=== PATIENT | male | born 1930 | race Caucasian/White ===

== ENCOUNTER 2016-08-31 21:15 | Inpatient (IN) ==
[2016-08-31 22:28] LABS: Basophils # 0.1 K/mcL (0.0-0.2); Eosinophils # 0.1 K/mcL (0.0-0.6); Eosinophils % 1.2 %; Hematocrit 40.6 % (37.5-50.1); Hemoglobin 12.8 g/dL (12.9-16.9); Immature Granulocytes % 0.2 % (0-4); Lymphocytes % 19.8 %; Mean Corpuscular HGB Conc 31.5 g/dL (31.6-35.5); Mean Corpuscular Hemoglobin 30.8 pg (28.0-33.3); Mean Corpuscular Volume 97.6 fL (83.0-100.0); Mean Platelet Volume 12.6 fL (9.4-12.4); Monocytes # 0.6 K/mcL (0.0-1.3); Monocytes % 11.9 %; Neutrophils # 3.3 K/mcL (1.6-8.9); Nucleated Red Blood Cells 0.6 /100 WBC (0); Platelet Count 146 K/mcL (140-400); Red Blood Count 4.16 M/mcL (4.19-5.50); Red Cell Distribution Width 18.3 % (11.5-14.5); Segmented Neutrophils % 65.9 %
[2016-08-31 22:30] LABS: Bilirubin,Urine Small (Negative); Blood,Urine Moderate (Negative); Clarity,Urine Clear (Clear); Color,Urine Yellow (Yellow); Glucose,Urine (UA) Normal (Normal); Ketones,Urine Negative (Negative); Leukocyte Esterase,Urine Negative (Negative); Nitrite,Urine Negative (Negative); PH,Urine 5.5 pH Units (5.0-8.0); Protein,Urine >=300 mg/dL (Neg-Trace); Specific Gravity,Urine 1.023 (1.010-1.025); Urobilinogen,Urine Normal (Normal)
[2016-08-31 22:33] LABS: INR 2.3; Prothrombin Time 25.8 Seconds (9.4-12.1)
[2016-08-31 22:35] LABS: Activated Partial Thrombo Time 34.4 Seconds (26.0-36.0)
[2016-08-31 22:38] LABS: Bacteria,Urine Few per hpf (None-Few); Hyaline Casts,Urine Few per lpf (None-Few); RBC,Urine 0-3 per hpf (0-3); WBC,Urine 0-3 per hpf (0-3)
[2016-08-31 22:39] LABS: Squamous Epithelial Cell,Urine Few per lpf (None-Few)
[2016-08-31 22:42] LABS: Calcium 8.6 mg/dL (8.6-10.8); Potassium 4.7 mEq/L (3.5-4.5)
--- NOTE | 2016-08-31 23:46 | Emergency Department Note ---
Disposition Clinical Impression: Elevated troponin, Chronic atrial fibrillation, JULIO (acute kidney injury) TIA (transient ischemic attack) Qualifiers: Transient cerebral ischemia type: unspecified Qualified Code(s): G45.9 - Transient cerebral ischemic attack, unspecified A-fib Qualifiers: Atrial fibrillation type: chronic Qualified Code(s): I48.2 - Chronic atrial fibrillation Disposition: Admitted As Inpatient Condition: Fair Time of Disposition: 22:50 Dizziness HPI - General Chief Complaint: ED Dizziness Stated Complaint: dizziness Time Seen by Provider: 08/31/16 21:22 Source: patient, EMS Limitations: no limitations Nursing Notes Reviewed: Yes Vital Signs Reviewed: Yes - History of Present Illness HPI Narrative: Patient is an 86-year-old male complains he thinks he is having a stroke. Patient states that he suddenly had a feeling of lightheadedness and dizziness, and felt strange and relates that feeling to the last time he had a stroke. Patient states he just did not feel right. Patient also states that he has been having difficulty urinating and that his urine is strong. Patient's from out of town has not been seen here before. Patient's Dr. Potter is in [facility]. 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 Patient's blood sugar by EMS was 121. - Related Data Home Medications Medication Instructions Recorded Confirmed Furosemide [Lasix] 20 mg PO DAILY 08/31/16 08/31/16 Metoprolol [Lopressor] 12.5 mg PO BID 08/31/16 08/31/16 Potassium Chloride 10 meq PO DAILY 08/31/16 08/31/16 Simvastatin [Zocor] 40 mg PO HS 08/31/16 08/31/16 Warfarin [Coumadin] 4 mg PO 1800 08/31/16 08/31/16 Oxycodone HCl/Acetaminophen 1 tab PO Q6HR PRN 09/01/16 09/01/16 [Percocet 5-325 mg Tablet] Allergies Allergy/AdvReac Type Severity Reaction Status Date / Time No Known Allergies Allergy Verified 08/31/16 21:16 Review of Systems: Patient denies headache, nausea, vomiting, chest pain, abdominal pain, diarrhea. Patient admits to lightheadedness, dizziness without vertigo, uneasy feeling. Patient denies visual disturbances as well and numbness and tingling in extremities All systems ED: reviewed and negative except as stated. Past Medical History - Past Medical History Attestation: Yes The following information was validated with the patient. Medical history: Reports: CVA, hypertension, renal disease Psychiatric history: Reports: no psych history - Social History Smoking Status: Former smoker Smokeless Tobacco Status: No Alcohol use: Reports: occasionally Drug use: Reports: none Physical Exam Vital Signs Temperature 97.4 F L 08/31/16 21:19 Pulse Rate 85 08/31/16 21:19 Respiratory Rate 18 08/31/16 21:19 Blood Pressure 130/80 08/31/16 21:19 O2 Sat by Pulse Oximetry 97 08/31/16 21:19 Temperature 98.0 F 09/01/16 04:20 Pulse Rate 56 09/01/16 04:20 Respiratory Rate 15 09/01/16 04:20 Blood Pressure 135/74 09/01/16 04:20 O2 Sat by Pulse Oximetry 95 09/01/16 04:20 Oxygen Delivery Oxygen Delivery Nasal Cannula -General Appearance: Patient is a 86-year-old male who is alert and oriented 3 and in no acute distress. -Neurological exam: Cranial nerves II-12 intact, no focal deficits observed, strength equal 5/5 bilaterally in upper and lower extremities, cerebellar motion test negative. Negative loss of sensation - Head Head exam: atraumatic, normocephalic, normal inspection - Eye Eye exam: Present: normal appearance, PERRL, EOMI, negative for scleral icterus negative for conjunctival pallor - ENT ENT exam: normal exam, normal oropharynx, mucous membranes moist - Neck Neck exam: Present: normal inspection, full ROM, trachea midline, negative JVD - Chest Chest inspection: Present: Patient has bilateral equal rise and fall of chest wall. Non-tender to palpation. - Respiratory Respiratory exam: Clear to auscultation bilaterally without wheezes rales or rhonchi Cardiovascular Cardiovascular exam: Present: Irregular rate and irregular rhythm, EKG shows A. fib. No rubs murmurs or gallops - Abdominal Exam Abdominal exam: Present: soft, nondistended, Non-Tender light and deep palpation in all quadrants. Bowel sounds normoactive throughout all 4 quadrants. Negative for hyper or hyperresonance. - Extremities Exam Extremities exam: Present: normal inspection, full ROM - Back Exam Back exam: Present: normal inspection, full ROM. Absent: tenderness, CVA tenderness (R), CVA tenderness (L) - Psychiatric Psychiatric exam: Present: normal affect, normal mood - Skin Skin exam: Present: warm, dry, intact, normal color - General Limitations: no limitations General appearance: alert, in no apparent distress Course Course Narrative: Patient seen and examined. Labs ordered, ordered, CT head ordered - Reevaluation(s) Reevaluation #1: Patient doing well, awaiting lab results Time: 22:10 Reevaluation #2: Patient's symptoms well. Discussed the patient and need for admission given his acute kidney injury and unknown feeling in the setting of A. fib and elevated troponin. Patient understands and agrees to treatment plan patient agrees to admission Time: 22:50 - Consultations Consultation #1: Dr. Grijalva accepted for admission. Time: 22:50 Vital Signs Temperature 97.4 F L 08/31/16 21:19 Pulse Rate 85 08/31/16 21:19 Respiratory Rate 18 08/31/16 21:19 Blood Pressure 130/80 08/31/16 21:19 O2 Sat by Pulse Oximetry 97 08/31/16 21:19 Temperature 98.0 F 09/01/16 04:20 Pulse Rate 56 09/01/16 04:20 Respiratory Rate 15 09/01/16 04:20 Blood Pressure 135/74 09/01/16 04:20 O2 Sat by Pulse Oximetry 95 09/01/16 04:20 Oxygen Delivery Oxygen Delivery Nasal Cannula Dizziness - MDM Narrative Medical decision making narrative: Recent history concerning for possible CVA, TIA, MA, pneumonia, UTI. CT head was there any abnormalities, chest x-ray showed right pleural effusion, and right lower lobe airspace disease. BMP shows hyperkalemia of 4.7, BUN elevation at 38, creatinine level 1.86. Patient has no previous lab values for comparison. Patient also has a GFR of 34. The patient has acute kidney injury possibly and a level of dehydration. Patient is placed on IV hydration. Patient also has a troponin of 0.07. It is unclear why patient has an elevation of troponin the patient does have chronic atrial fibrillation. Recommend patient be admitted to the hospital for further workup. Dr. Grijalva has accepted for admission - Lab Data Lab results reviewed: Yes I reviewed the patient's lab results. Lab results narrative: Short CBC 08/31/16 Range/Units 22:18 WBC 4.9 (4.3-11.1) K/mcL Hgb 12.8 L (12.9-16.9) g/dL Hct 40.6 (37.5-50.1) % Plt Count 146 (140-400) K/mcL Neutrophils # 3.3 (1.6-8.9) K/mcL BMP 08/31/16 Range/Units 22:18 Sodium 140 (136-145) mEq/L Potassium 4.7 H (3.5-4.5) mEq/L Chloride 108 (98-109) mEq/L Carbon Dioxide 22 (19-29) mEq/L BUN 38 H (8-26) mg/dL Creatinine 1.86 H (0.72-1.25) mg/dL Glucose 104 H (70-99) mg/dL Calcium 8.6 (8.6-10.8) mg/dL Cardiac Enzymes 08/31/16 Range/Units 22:18 Troponin I 0.07 H* (0-0.03) ng/mL Urine 08/31/16 Range/Units 22:20 Urine Color Yellow (Yellow) Urine Clarity Clear (Clear) Urine pH 5.5 (5.0-8.0) pH Units Ur Specific [place] 1.023 (1.010-1.025) Urine Protein >=300 H (Neg-Trace) mg/dL Urine Glucose (UA) Normal (Normal) mg/dL Result diagrams: 08/31/16 22:18 08/31/16 22:18 Lab Results 08/31/16 08/31/16 08/31/16 Range/Units 22:18 22:18 22:18 WBC 4.9 (4.3-11.1) K/mcL RBC 4.16 L (4.19-5.50) M/mcL Hgb 12.8 L (12.9-16.9) g/dL Hct 40.6 (37.5-50.1) % MCV 97.6 (83.0-100.0) fL MCH 30.8 (28.0-33.3) pg MCHC 31.5 L (31.6-35.5) g/dL RDW 18.3 H (11.5-14.5) % Plt Count 146 (140-400) K/mcL MPV 12.6 H (9.4-12.4) fL Immature Gran % 0.2 (0-4) % Seg Neutrophils % 65.9 % Lymphocytes % 19.8 % Monocytes % 11.9 % Eosinophils % 1.2 % Basophils % 1.0 % Neutrophils # 3.3 (1.6-8.9) K/mcL Lymphocytes # 1.0 (0.6-4.6) K/mcL Monocytes # 0.6 (0.0-1.3) K/mcL Eosinophils # 0.1 (0.0-0.6) K/mcL Basophils # 0.1 (0.0-0.2) K/mcL Nucleated RBCs/100 WBC 0.6 H (0) /100 WBC PT 25.8 H (9.4-12.1) Seconds INR 2.3 APTT 34.4 (26.0-36.0) Seconds Sodium 140 (136-145) mEq/L Potassium 4.7 H (3.5-4.5) mEq/L Chloride 108 (98-109) mEq/L Carbon Dioxide 22 (19-29) mEq/L BUN 38 H (8-26) mg/dL Creatinine 1.86 H (0.72-1.25) mg/dL Est GFR ( Amer) 42 L (> 60) Est GFR (Non-Af Amer) 34 L (> 60) BUN/Creatinine Ratio 20 (6-26) Glucose 104 H (70-99) mg/dL Calculated Osmolality 299 (280-300) Calcium 8.6 (8.6-10.8) mg/dL Troponin I (0-0.03) ng/mL Urine Color (Yellow) Urine Clarity (Clear) Urine pH (5.0-8.0) pH Units Ur Specific [place] (1.010-1.025) Urine Protein (Neg-Trace) mg/dL Urine Glucose (UA) (Normal) mg/dL Urine Ketones (Negative) mg/dL Urine Blood (Negative) Urine Nitrite (Negative) Urine Bilirubin (Negative) Urine Urobilinogen (Normal) mg/dL Ur Leukocyte Esterase (Negative) Urine Microscopic RBC (0-3) per hpf Urine Microscopic WBC (0-3) per hpf Ur Squamous Epith Cells (None-Few) per lpf Urine Bacteria (None-Few) per hpf Hyaline Casts (None-Few) per lpf Ur Culture Indicated? (NO) 08/31/16 08/31/16 Range/Units 22:18 22:20 WBC (4.3-11.1) K/mcL RBC (4.19-5.50) M/mcL Hgb (12.9-16.9) g/dL Hct (37.5-50.1) % MCV (83.0-100.0) fL MCH (28.0-33.3) pg MCHC (31.6-35.5) g/dL RDW (11.5-14.5) % Plt Count (140-400) K/mcL MPV (9.4-12.4) fL Immature Gran % (0-4) % Seg Neutrophils % % Lymphocytes % % Monocytes % % Eosinophils % % Basophils % % Neutrophils # (1.6-8.9) K/mcL Lymphocytes # (0.6-4.6) K/mcL Monocytes # (0.0-1.3) K/mcL Eosinophils # (0.0-0.6) K/mcL Basophils # (0.0-0.2) K/mcL Nucleated RBCs/100 WBC (0) /100 WBC PT (9.4-12.1) Seconds INR APTT (26.0-36.0) Seconds Sodium (136-145) mEq/L Potassium (3.5-4.5) mEq/L Chloride (98-109) mEq/L Carbon Dioxide (19-29) mEq/L BUN (8-26) mg/dL Creatinine (0.72-1.25) mg/dL Est GFR ( Amer) (> 60) Est GFR (Non-Af Amer) (> 60) BUN/Creatinine Ratio (6-26) Glucose (70-99) mg/dL Calculated Osmolality (280-300) Calcium (8.6-10.8) mg/dL Troponin I 0.07 H* (0-0.03) ng/mL Urine Color Yellow (Yellow) Urine Clarity Clear (Clear) Urine pH 5.5 (5.0-8.0) pH Units Ur Specific [place] 1.023 (1.010-1.025) Urine Protein >=300 H (Neg-Trace) mg/dL Urine Glucose (UA) Normal (Normal) mg/dL Urine Ketones Negative (Negative) mg/dL Urine Blood Moderate H (Negative) Urine Nitrite Negative (Negative) Urine Bilirubin Small H (Negative) Urine Urobilinogen Normal (Normal) mg/dL Ur Leukocyte Esterase Negative (Negative) Urine Microscopic RBC 0-3 (0-3) per hpf Urine Microscopic WBC 0-3 (0-3) per hpf Ur Squamous Epith Cells Few (None-Few) per lpf Urine Bacteria Few (None-Few) per hpf Hyaline Casts Few (None-Few) per lpf Ur Culture Indicated? NO (NO) - Radiology Data Radiology results reviewed: Yes I reviewed the patient's radiology results. Chest X-Ray 08/31/16 21:22 IMPRESSION: Moderate-sized right pleural effusion. Bilateral lower lobe airspace disease greater on the right. These changes may represent multifocal pneumonia versus CHF. D/ : / 08/31/2016 21:55:58 Galdino Richards MD / Elida Simpson Interpreting Provider: Galdino Richards MD Head CT 08/31/16 21:41 IMPRESSION: No acute intracranial abnormality. If acute cerebral infarct is clinical concern, an MRI is a more sensitive study. D/ / Rebecca Barnett Cha, MD / Rebecca Barnett Cha, MD Interpreting Provider: Rebecca Barnett Cha, MD - EKG Data EKG attestation: Yes I reviewed and interpreted this EKG. EKG results narrative: Patient's EKG dated 08/31/2016 at 2126 hrs. shows A. fib at a ventricular rate of 86 bpm with no acute ST deviations. We have no previous EKG for comparison this is patient's first time here. Attestation Statement - Attestation Attestation: For this encounter, I have reviewed the resident, HOUSEHOLD APPLIANCE INSTALLER, or PA documentation, treatment plan, and medical decision making; and I have had face to face time with this patient. 78-year-old male presents with concerns of acute onset weakness and fatigue. He states he has difficulty with ambulation around the house over the past 24 hours. Patient denies fever, chills, nausea, vomiting, chest pain, abdominal pain, diarrhea. Physical examination reveals the lungs clear to auscultation bilaterally. Cardiac exam has an irregularly irregular rhythm. EKG shows atrial fibrillation at a rate of 86 bpm with multiple PVCs without evidence of STEMI. Patient has an elevation of his troponin. He has no chest pain emergency Department. Patient comfortable with admission to the hospital for continued care and evaluation of his weakness and fatigue which may be this patient's presenting complaint for ACS.
[2016-08-31] MEDS ORDERED: Naloxone 0.4 MG/ML INJ IVP PRN (23:48)
[2016-09-01] MEDS ORDERED: 0.9 % Sodium Chloride 1,000 ML IVC SCH (01:15)
[2016-09-01] MEDS ORDERED: Ondansetron 4 MG/2 ML VIAL IVP PRN (01:16)
[2016-09-01] MEDS ORDERED: Naloxone 0.4 MG/ML INJ IVP PRN (01:16)
--- NOTE | 2016-09-01 01:36 | Internal Med History&Physical ---
Date of Encounter: 09/01/16 Time of Encounter: 00:25 Internal Medicine - H&P: HPI Chief complaint: I was advised to get check out after a bout of dizziness. Admitted From: Emergency Dept Plans for Post Hospital Care: Home History of present illness: Mr. Jane is a 86 year old male with medical history significant for CAD S/P TN, CKD and CVA, presents on advise of his brother -in-law to come get an evaluation after he a a short spell of lightheadness/dizziness after splitting wood yesterday. He reports he did not feel well. The spell lasted under one hour and has not recurred since. He went to bed and woke up in the morning, symptoms had completely resolved. No recurrence. He did not fall. He has no chest pain and had no other neurological deficit. Had CVA a couple of years ago , and felt dizzy at that time too. aT THE TIME OF MY INTERVIEW, HE HAD NO COMPLAINTS. His PCP is Dr. Potter of [facility]. He is FULL CODE as per discussion. He nominates his sister as his NOK/POA. Medical history: Reports: CVA, hypertension, CKD, atrial fibrillation, CAD s/p CABG, deafness (uses a hearing aid) Surgerical history: CABG Psychiatric history: Reports: no psych history Smoking Status: Former smoker Smokeless Tobacco Status: No Alcohol use: Reports: occasionally Drug use: Reports: none Family history reviewed and found to be non-contributory ROS: A 10-poit ROS was performed, positives and relevant negatives are detailed , system-symptoms not mentioned assumed negative unless otherwise stated. Vital Signs Temperature 97.4 F L 08/31/16 21:19 Pulse Rate 85 08/31/16 21:19 Respiratory Rate 18 08/31/16 21:19 Blood Pressure 130/80 08/31/16 21:19 O2 Sat by Pulse Oximetry 97 08/31/16 21:19 Temperature 97.4 F L 08/31/16 21:19 Pulse Rate 84 08/31/16 23:17 Respiratory Rate 16 08/31/16 23:17 Blood Pressure 145/98 08/31/16 23:17 O2 Sat by Pulse Oximetry 96 08/31/16 23:17 O/E: Not ill looking, not in distress, Not pale, anicteric, afebrile to touch, acyanotic HEENT: No cervical or jugular lymphadenopathy, pharynx and tonsils normal. Chest: Clinically clear, sternotomy scar Heart: irregular-irregular 82, HS1/2. 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 Extremities: 1+ pitting pedal edema in the left lower extremity, site of venous harvest for CABG 08/31/16 22:18 Lab Results 08/31/16 08/31/16 08/31/16 Range/Units 22:18 22:18 22:18 WBC 4.9 (4.3-11.1) K/mcL RBC 4.16 L (4.19-5.50) M/mcL Hgb 12.8 L (12.9-16.9) g/dL Hct 40.6 (37.5-50.1) % MCV 97.6 (83.0-100.0) fL MCH 30.8 (28.0-33.3) pg MCHC 31.5 L (31.6-35.5) g/dL RDW 18.3 H (11.5-14.5) % Plt Count 146 (140-400) K/mcL MPV 12.6 H (9.4-12.4) fL Immature Gran % 0.2 (0-4) % Seg Neutrophils % 65.9 % Lymphocytes % 19.8 % Monocytes % 11.9 % Eosinophils % 1.2 % Basophils % 1.0 % Neutrophils # 3.3 (1.6-8.9) K/mcL Lymphocytes # 1.0 (0.6-4.6) K/mcL Monocytes # 0.6 (0.0-1.3) K/mcL Eosinophils # 0.1 (0.0-0.6) K/mcL Basophils # 0.1 (0.0-0.2) K/mcL Nucleated RBCs/100 WBC 0.6 H (0) /100 WBC PT 25.8 H (9.4-12.1) Seconds INR 2.3 APTT 34.4 (26.0-36.0) Seconds Sodium 140 (136-145) mEq/L Potassium 4.7 H (3.5-4.5) mEq/L Chloride 108 (98-109) mEq/L Carbon Dioxide 22 (19-29) mEq/L BUN 38 H (8-26) mg/dL Creatinine 1.86 H (0.72-1.25) mg/dL Est GFR ( Amer) 42 L (> 60) Est GFR (Non-Af Amer) 34 L (> 60) BUN/Creatinine Ratio 20 (6-26) Glucose 104 H (70-99) mg/dL Calculated Osmolality 299 (280-300) Calcium 8.6 (8.6-10.8) mg/dL Troponin I (0-0.03) ng/mL Urine Color (Yellow) Urine Clarity (Clear) Urine pH (5.0-8.0) pH Units Ur Specific [place] (1.010-1.025) Urine Protein (Neg-Trace) mg/dL Urine Glucose (UA) (Normal) mg/dL Urine Ketones (Negative) mg/dL Urine Blood (Negative) Urine Nitrite (Negative) Urine Bilirubin (Negative) Urine Urobilinogen (Normal) mg/dL Ur Leukocyte Esterase (Negative) Urine Microscopic RBC (0-3) per hpf Urine Microscopic WBC (0-3) per hpf Ur Squamous Epith Cells (None-Few) per lpf Urine Bacteria (None-Few) per hpf Hyaline Casts (None-Few) per lpf Ur Culture Indicated? (NO) 08/31/16 08/31/16 Range/Units 22:18 22:20 WBC (4.3-11.1) K/mcL RBC (4.19-5.50) M/mcL Hgb (12.9-16.9) g/dL Hct (37.5-50.1) % MCV (83.0-100.0) fL MCH (28.0-33.3) pg MCHC (31.6-35.5) g/dL RDW (11.5-14.5) % Plt Count (140-400) K/mcL MPV (9.4-12.4) fL Immature Gran % (0-4) % Seg Neutrophils % % Lymphocytes % % Monocytes % % Eosinophils % % Basophils % % Neutrophils # (1.6-8.9) K/mcL Lymphocytes # (0.6-4.6) K/mcL Monocytes # (0.0-1.3) K/mcL Eosinophils # (0.0-0.6) K/mcL Basophils # (0.0-0.2) K/mcL Nucleated RBCs/100 WBC (0) /100 WBC PT (9.4-12.1) Seconds INR APTT (26.0-36.0) Seconds Sodium (136-145) mEq/L Potassium (3.5-4.5) mEq/L Chloride (98-109) mEq/L Carbon Dioxide (19-29) mEq/L BUN (8-26) mg/dL Creatinine (0.72-1.25) mg/dL Est GFR ( Amer) (> 60) Est GFR (Non-Af Amer) (> 60) BUN/Creatinine Ratio (6-26) Glucose (70-99) mg/dL Calculated Osmolality (280-300) Calcium (8.6-10.8) mg/dL Troponin I 0.07 H* (0-0.03) ng/mL Urine Color Yellow (Yellow) Urine Clarity Clear (Clear) Urine pH 5.5 (5.0-8.0) pH Units Ur Specific [place] 1.023 (1.010-1.025) Urine Protein >=300 H (Neg-Trace) mg/dL Urine Glucose (UA) Normal (Normal) mg/dL Urine Ketones Negative (Negative) mg/dL Urine Blood Moderate H (Negative) Urine Nitrite Negative (Negative) Urine Bilirubin Small H (Negative) Urine Urobilinogen Normal (Normal) mg/dL Ur Leukocyte Esterase Negative (Negative) Urine Microscopic RBC 0-3 (0-3) per hpf Urine Microscopic WBC 0-3 (0-3) per hpf Ur Squamous Epith Cells Few (None-Few) per lpf Urine Bacteria Few (None-Few) per hpf Hyaline Casts Few (None-Few) per lpf Ur Culture Indicated? NO (NO) Chest xr: Moderate-sized right pleural effusion. Bilateral lower lobe airspace disease greater on the right. This is consistent with CHF. Head CT: No acute intracranial abnormality. IMPRESSION 1. Transient spell of dizziness after splitting wood, now resolved 2. Right pleural effusion, related to to CHF 3. Congestive heart failure with decompensation 4. Elevated troponin of unknown significance, I suspect this is either chronic or related to demand ischemia 5. CKD III, though unlikely, I cannt exclude an acute on chronic component as I do not have prior studies. Besides the finding on CXR, HE APPEARS EUVOLEMIC 6. Hypoxia Chronic morbidities CKD CAD s/p CABG Atrial fibrillation on Metoprolol and Warfarin CHF (? TYPE) on Furosemide PLAN Admit to observation Telemetry Trend troponin Consider stress testing if result of cardiac studies cannot be obtained from PCP or accounts receivable clerk 2D ECHO IV Furosemide 40mg IVP QD. Consult cardiology Continue other medication of chronic morbidities Obtain records from Dr. Potter of [facility], crucial are his baseline creatinine and recent cardiac work-up. On Warfarin for stroke prophylaxis, will serve aslo DVT prophylaxis I discussed my assessment with the patient, he verbalized understanding and is agreeable to admission. He is admitted for evaluation of dizziness, elevated troponin and some diuresis. Past Med Surg Social Fam HX - Past Medical History Medical history: CVA, hypertension, renal disease Psychiatric history: no psych history - Social History Smoking Status: Former smoker Smokeless Tobacco Status: No Alcohol use: occasionally Drug use: none Internal Medicine - H&P: Meds Furosemide [Lasix] 20 mg PO DAILY 08/31/16 [History] Metoprolol [Lopressor] 12.5 mg PO BID 08/31/16 [History] Potassium Chloride 10 meq PO DAILY 08/31/16 [History] Simvastatin [Zocor] 40 mg PO HS 08/31/16 [History] Warfarin [Coumadin] 4 mg PO 1800 08/31/16 [History] Oxycodone HCl/Acetaminophen [Percocet 5-325 mg Tablet] 1 tab PO Q6HR PRN [History] Allergies No Known Allergies Allergy (Verified 08/31/16 21:16) All Systems PM: A 10-system review of systems was performed and is negative for pertinent findings except as documented above in the HPI. - Constitutional Vitals: Temp Pulse Resp BP Pulse Ox 97.5 F L 79 15 136/73 96 09/01/16 01:27 09/01/16 01:27 09/01/16 01:27 09/01/16 01:27 09/01/16 01:27 Internal Med - H&P Results - Labs CBC & Chem 7: 08/31/16 22:18 08/31/16 22:18
[2016-09-01 05:55] LABS: Chol/HDL Ratio 4.7 (0-4.9)
[2016-09-01 06:00] LABS: Thyroid Stimulating Hormone 0.468 mcIU/mL (0.350-4.840)
[2016-09-01] MEDS ORDERED: Furosemide 20 MG TABLET PO SCH (09:00)
[2016-09-01] MEDS ORDERED: Furosemide 40 MG/4 ML VIAL IVP SCH ×2 (09:00→12:00)
--- NOTE | 2016-09-01 09:17 | Cardiology Consult Note ---
<Jose Hutchins - Last Filed: 09/01/16 10:53> Date of Encounter: 09/01/16 Time of Encounter: 09:14 Assessment and Plan (1) Elevated troponin Current Visit: Yes Status: Acute Mild troponin elevation at 0.07, 0.09. Likely demand ischemia in the setting of CHF and JULIO. Baseline creatinine unknown. Order records. Check TTE. (2) Chronic atrial fibrillation Current Visit: No Status: Chronic Likely chronic afib. Rate controlled. On coumadin for senior living anticoagulation. (3) CHF (congestive heart failure) Current Visit: Yes Status: Acute Reports history of CHF. Continues to have SOB and orthopnea. CXR reviewed. Moderate right pleural effusion and bilateral airspace changes. BNP 2891. Continue IV lasix. Strict I&O and daily weights. CHF education. TTE to assess for systolic dysfunction. Qualifiers: Congestive heart failure type: unspecified congestive heart failure type Congestive heart failure chronicity: acute Qualified Code(s): I50.9 - Heart failure, unspecified (4) CAD (coronary artery disease) Current Visit: No Status: Chronic H/o of CAD s/p CABG in 2009, and possible valvular repair. Pt poor historian. Reports he has not seen drawer fitter for about 7 years. Denies chest pain. We will order records. Qualifiers: Coronary Disease-Associated Artery/Lesion type: [place] artery [place] vs. transplanted heart: [place] heart Associated angina: without angina Qualified Code(s): I25.10 - Atherosclerotic heart disease of [place] coronary artery without angina pectoris Discussion w patient/family: The assessment and plan as outlined above was discussed with the patient and/or family members who expressed understanding and agreement. All questions were answered. Thank you for involving us in the care of your patient. Please call with any questions. History of Present Illness Consult date: 09/01/15 Requesting physician: Bakari Robert Consult reason: elevated troponin Chief complaint: SOB, lightheadedness History of present illness: Mr. Jane is a 86 year old male who presented with lightheadedness and SOB that started while he was chopping wood. He is from [place], [place] and was visiting a sister. His lightheadedness was similar to what he felt with a previous CVA so he presented to ER. His lightheadedness lasted for a short period. He continues to have SOB. Admits to orthopnea. He denies chest pain . Denies N/V or diaphoresis. He is a poor historian. I did talk to his daughter on the phone to obtain his health history. His troponin was found to be elevated at 0.07,0.09. CXR showed moderate right pleural effusion, bilateral airspace changes, CHF vs PNA. Cardiology consulted for elevated troponin. Past medical history of CAD s/p CABG, atrial fibrillation on coumadin, CHF, CKD, previous tobacco use, and CVA. No previous work-up through [facility]. Past Med Surg Social Fam HX - Past Medical History Medical history: atrial fibrillation, CHF, coronary artery disease, CVA, hypertension, renal disease Psychiatric history: no psych history - Past Surgical History Surgical History: coronary bypass (CABG) - Social History Smoking Status: Former smoker Smokeless Tobacco Status: No Alcohol use: occasionally Drug use: none - Family History Father Living Status: Hx Family Cancer: Yes (Throat cancer.) Mother Living Status: Cause of : Gallbladder burst. Medications and Allergies Furosemide [Lasix] 20 mg PO DAILY 08/31/16 [History] Metoprolol [Lopressor] 12.5 mg PO BID 08/31/16 [History] Potassium Chloride 10 meq PO DAILY 08/31/16 [History] Simvastatin [Zocor] 40 mg PO HS 08/31/16 [History] Warfarin [Coumadin] 4 mg PO 1800 08/31/16 [History] Oxycodone HCl/Acetaminophen [Percocet 5-325 mg Tablet] 1 tab PO Q6HR PRN [History] Allergies No Known Allergies Allergy (Verified 08/31/16 21:16) All Systems Review: A 10-system review of systems was performed and is negative for pertinent findings except as documented above in the HPI. Physical Examination Vital Signs, Last 4 Hours Temp Pulse Resp BP Pulse Ox 09/01/16 06:35 97.7 F 74 17 137/70 92 L General: Conversant, No Apparent Distress HEENT: Atraumatic, Normocephaly, Mucus Membranes Moist Neck: No JVD, Normal carotid pulses Cardiac: No Murmur, Other (Irregularly irregular. ) Lungs: Other (Respirations mildly labored on RA. Loud expiratory wheezes. ) Neuro: Alert and responsive, No focal deficits noted Abdomen: Soft, Non-Tender Skin: No rashes noted on visualized skin Musculoskeletal: No Chest Wall Tenderness Extremities: No Clubbing, No Cyanosis, No Edema, Normal Pulses Results 08/31/16 22:18 08/31/16 22:18 Lab Results 09/01/16 09/01/16 04:02 04:02 Troponin I 0.09 H* TSH 0.468 - Imaging and Cardiology Echo: pending - EKG Interpretation EKG results cardiology: personally reviewed (atrial fibrillation, afib, HR 89bpm ) Consult Discharge Plan - Plan Referrals: NO,PCP [Primary Care Provider] - <Leonor Gomez - Last Filed: 09/01/16 17:36> Date of Encounter: 09/01/16 Assessment and Plan Discussion w patient/family: The assessment and plan as outlined above was discussed with the patient and/or family members who expressed understanding and agreement. All questions were answered. Thank you for involving us in the care of your patient. Please call with any questions. History of Present Illness History of present illness: Mr. Jane is a 86 year old male All Systems Review: A 10-system review of systems was performed and is negative for pertinent findings except as documented above in the HPI. Physical Examination Vital Signs, Last 4 Hours Temp Pulse Resp BP Pulse Ox 09/01/16 14:57 97.6 F 73 16 129/71 95 Results 08/31/16 22:18 08/31/16 22:18 Lab Results 09/01/16 09/01/16 09/01/16 04:02 04:02 09:32 Troponin I 0.09 H* 0.08 H* B-Natriuretic Peptide TSH 0.468 09/01/16 09:32 Troponin I B-Natriuretic Peptide 2891 H TSH - Attending Attestation I examined this patient and my medical decision-making was reviewed with the CHANNEL MARKETING MANAGER/PA/Advanced Practice Nurse/Resident Physician. I agree with the documented findings, disposition and treatment plan. Mr. Jane's health care has been largely outside of [place]. History taking is also challenging although he reports a history of CAD and CABG. It appears he may have presented with SOB which is likely secondary to acute decompensated systolic heart failure. Echo returned with EF 25%. Troponins are flat and adynamic representing demand ischemia. We recommend continuing IV diuresis with strict I/O's. He is on a beta nash. Until we review records, would hold off on starting ACEI because of the presence of kidney dysfunction. We will request medical records for review. He otherwise has chronic AF and is on coumadin. He is not having chest pain. In addition, he has an aortic valve that was replaced which demonstrates normal gradient on echo. His mitral valve was repaired. There is a filamentous echodensity on the echo in which vegetation appears unlikely. The patient is afebrile and has no WBCs and does not appear ill. We will have blood cultures drawn before considering treatment. It is possible the echodensity is a remnant of mitral valve repair. We will also review records when they arrive.
--- NOTE | 2016-09-01 10:37 | Electrocardiograph Report ---
[facility] Test Date: 2016-08-31 Pat Name: Tarik Jane Department: 105 Room: 3B31 Gender: M Propagator: AARON : 1930 Requested By: Farooq Moyer Order Number: [id number] Reading MD: Dar Bray DO Measurements Intervals [place] Rate: 86 P: AK: 0 QRS: 83 QRSD: 98 T: 21 QT: 342 QTc: 386 Interpretive Statements Atrial fibrillation with aberrant conduction or a PVC Nonspecific ST-T changes Electronically Signed On 09-01-16 10:36:23 EST by Dar Bray DO
--- NOTE | 2016-09-01 14:11 | ECHO - Doppler Report ---
Echocardiogram Name: Tarik Jane Date of Study: 09/01/2016 Date: 1930 Ht: 70.0 in Medical Record#: [id number] Age: 86 Wt: 149.0 lb Gender: Male BSA: 1.84 Order #: [id number] Location: [facility] Room #: 3B31 Reading Physician: Dar Bray DO, MICHAEL, SELAM ADAMES Price Economist: Jerilyn Elder RVT Ordering Physician: Bakari Robert MD Primary Physician: None Indications: Elevated toponin Impressions: LVEF 25%. Severe global and segmental LV systolic dysfunction. Indeterminate diastolic function. Atypical septal motion consistent with post-operative status. Right ventricle appears near normal in size with mild hypokinesis. Moderate biatrial enlargement. Brioprosthetic aortic valve appears well seated. Trace valvular aortic regurgitation. Mean aortic valve gradient is 10 mmHg, which could be underestimated due to LV systolic dysfunction. Visually, the leaflets do not appear calcified and demonstrate adequate mobility. Previous mitral valve repair per reports. Mitral valve leaflets appear thickened. Filamentous oscillating echodensity adherent to the posterior MV annulus possibly represents a vegetation. Clinical correlation suggested. Mild-moderate pulmonary hypertension. Estimated RVSP is 43-48 mmHg, including an estimated RA pressure is 15-20 mmHg. No previous echocardiogorams at [place] for comparison. Left Ventricular Wall Motion: Rest Echo Findings The apex, apical inferior, mid inferior, apical anterior, mid anterior, basal anterior, mid inferior septal, basal inferior septal, apical lateral, mid anterior lateral, basal anterior lateral, mid inferior lateral and basal anterior septal gupta were hypokinetic. The basal inferior, apical septal, mid anterior septal and basal inferior lateral gupta were akinetic. Findings: Study Quality * Technically adequate exam. ECG Findings * Atrial fibrillation, possible bundle branch block. Left Ventricle * LVEF 25-30%. * Normal LV chamber size. * Severe global and segmental left ventricular systolic dysfunction. * Indeterminate diastolic function. * Atypical septal motion consistent with post-operative status. Right Ventricle * Right ventricle appears near normal in size with mild hypokinesis. Left Atrium * Moderately dilated left atrium. Right Atrium * Moderately dilated right atrium. Interatrial Septum * No evidence of PFO by color Doppler. Aortic Valve * Brioprosthetic aortic valve appears well seated. * Trace valvular aortic regurgitation. * Mean gradient 16 mmHg, which could be underestimated due to LV systolic dysfunction. Visually, the leaflets do not appears calcified and demonstrated adequate mobility. Mitral Valve * Previous mitral valve repair per reports. Mitral valve leaflets appear thickened. Filamentous oscillating echodensity adherent to the posterior MV annulus possibly represents a vegetation. Clinical correlation suggested. * Trace valvular mitral regurgitation. * No mitral stenosis. Tricuspid Valve * Normal tricuspid valve structure and function. * Trace tricuspid regurgitation. * Mild-moderate pulmonary hypertension. * Estimated RVSP is 43-48 mmHg. * Estimated RA pressure is 15-20 mmHg. Pulmonic Valve * Normal pulmonic valve structure and function. * Trace pulmonic regurgitation. Aorta * Normally sized aortic root. Pericardium * The pericardium appears normal. IVC * The IVC is dilated. * < 50% respiratory change. Pulmonary Artery * Normal visualized portions of the main pulmonary artery. History Hypertension Hypercholesteremia Family History of CAD History of CAD/PTCA Coronary Artery Bypass Graft Congestive Heart Failure Valvular Disease Valve Replacement AV Prosthesis Biologic Measurements: BP: 137/ 70 2D Normal Values RVIDd: 2.81 cm <2.7 cm IVSd: 1.20 cm 0.6 - 1.0 cm LVIDd: 5.47 cm 3.7 - 5.6 cm LVPWd: 1.20 cm 0.6 - 1.1 cm LVIDs: 4.43 cm 1.5 - 3.6 cm AO: 2.60 cm < 4.0 cm LA: 4.50 cm 2.0 - 4.0cm %FS: 19.00 cm >25 % LVOT Diam: 1.75 cm LA volume: 51.1 Mitral Valve Peak Velocity 1.89 m/sec Mean Velocity:.71 m/sec Peak Grad:14.00 mmHg Mean Grad:3.00 mmHg Pressure Time:48.00 msec Valve Area:.74 cm2 Peak E:1.55 m/sec Peak E' Lat Daniel:12.5 cm/s Peak E' Med Daniel:5.34 cm/s E/E' Lat Ratio:12.4 E/E' Med Ratio:29 LVOT Peak Daniel:.60 m/sec Mean Daniel:.37 m/sec Peak Grad:1.00 mmHg Mean Grad:1.00 mmHg Aortic Valve Peak Daniel:2.22 m/sec Mean Daniel:1.46 m/sec Peak Grad:20.00 mmHg Mean Grad:10.20 mmHg Valve Area:.75 cm2 AI pressure Half-time: 673.00 msec Tricuspid Valve TV Regurg Peak Grad: 20.00mmHg TV Regurg Peak Daniel: 2.22m/sec Updated by Dar Bray DO, FACWoody, ZACARIAS, SELAM on 09/01/2016 2:00:53 PM electronically signed on 09/01/2016 2:05:36 PM with status of Final Wall Motion [place]: 1=Normal, 2=Hypokinesis, 3=Akinesis, 4=Dyskinesis, 5=Aneurysmal, 6=Hyperkinetic, X=Not Visualized (Blank)=Missing
[2016-09-01] MEDS ORDERED: *HR* Warfarin 4 MG TABLET PO SCH (18:00)
[2016-09-01] MEDS: Furosemide 40 MG/4 ML VIAL IVP SCH (18:05)
--- NOTE | 2016-09-01 18:47 | Internal Med Progress Note ---
Date of Encounter: 09/01/16 Time of Encounter: 18:00 - Assessment and plan (1) Near syncope Current Visit: Yes Status: Acute Assessment and plan: Etiology is and determine. Need to rule out cardio/neuro etiology. Echo shows severe systolic dysfunction with diastolic dysfunction. Will also put the patient on continuous cardiac monitoring to rule out arrhythmia. On the duplex carotid to rule out stenosis. (2) A-fib Current Visit: Yes Status: Acute Assessment and plan: Patient is on Coumadin. INR therapeutic. Heart rate is well controlled Qualifiers: Atrial fibrillation type: chronic Qualified Code(s): I48.2 - Chronic atrial fibrillation (3) CHF (congestive heart failure) Current Visit: Yes Status: Acute Assessment and plan: Echo shows LVEF 25% with moderate diastolic dysfunction. Continue Lasix. Patient is on beta nash. Will follow cardiology further recommendation. Qualifiers: Congestive heart failure type: combined Congestive heart failure chronicity : acute Qualified Code(s): I50.41 - Acute combined systolic (congestive) and diastolic (congestive) heart failure (4) Elevated troponin Current Visit: Yes Status: Acute Assessment and plan: Cardiology saw patient. Consider demand ischemia. (5) CAD (coronary artery disease) Current Visit: No Status: Chronic Assessment and plan: Patient denies chest pain. On warfarin, beta blockers, and statin. Will follow cardiology further recommendation. Qualifiers: Coronary Disease-Associated Artery/Lesion type: [place] artery [place] vs. transplanted heart: [place] heart Associated angina: without angina Qualified Code(s): I25.10 - Atherosclerotic heart disease of [place] coronary artery without angina pectoris - Time Spent With Patient 25 - 35 minutes - Subjective Interval history: Patient is a 86-year-old male admitted as an near syncope. His past medical history is significant for CVA, hypertension, COPD, A. fib, CAD S/P CABG. Patient was seen and examined. He denies dizziness or lightheaded. No further syncope or near syncope. In mild respiratory distress. Cardio consult appreciated. Echo done shows LVEF 25% with moderate diastolic dysfunction. We will continue diuretics. Closely monitor patient. Will order duplex carotid bilaterally to rule out carotid stenosis. - Constitutional Vitals: Temp Pulse Resp BP Pulse Ox 97.6 F 73 16 129/71 95 09/01/16 14:57 09/01/16 14:57 09/01/16 14:57 09/01/16 14:57 09/01/16 14:57 General appearance: Present: mild distress, A&O X 3, answers questions appropriately - Head Head exam: Present: atraumatic, normocephalic - Eye Eye exam: Present: PERRL, conjuntiva pink, sclera anicteric Pupils: Present: PERRL - Neck Neck exam general surgery: Present: supple, trachea midline. Absent: lymphadenopathy - Respiratory Respiratory exam: Present: decreased breath sounds, CTAB. Absent: accessory muscle use, rales, rhonchi, wheezes - Cardiovascular Cardiovascular exam: Present: RRR, +S1, +S2. Absent: diastolic murmur, gallop, rubs, systolic murmur - GI/Abdominal GI/Abdominal exam: Present: normal bowel sounds, soft, no peritoneal signs. Absent: distended, tenderness - Extremities Exam Extremities exam: Present: warm, radial pulses palpable and symetrical. Absent : calf tenderness, cyanotic, pedal edema - Neurological Exam Neurological exam: Present: CN II-XII intact, oriented X3, no focal deficits. Absent: pronater drift, facial droop, speech deficit - Skin Skin exam: Present: dry, intact Internal Medicine: Result - Labs CBC & Chem 7: 08/31/16 22:18 08/31/16 22:18 Labs: Cardiac Enzymes 09/01/16 09/01/16 Range/Units 04:02 09:32 Troponin I 0.09 H* 0.08 H* (0-0.03) ng/mL - ABG Interpretation ABG results: PT/INR, D-dimer PT 25.8 Seconds (9.4-12.1) H 08/31/16 22:18 - Impressions Impressions Retroperitoneum Ultrasound 09/01/16 13:00 IMPRESSION: Unremarkable ultrasound of the kidneys and urinary bladder. Moderately enlarged prostate. Right pleural effusion incidentally noted. D/ / 09/01/2016 15:24:03 Tarik Bautista MD / meghan Interpreting Provider: Tarik Bautista MD Consult Discharge Plan - Plan Referrals: NO,PCP [Primary Care Provider] -
[2016-09-02 05:00] LABS: Basophils # 0.1 K/mcL (0.0-0.2); Basophils % 0.8 %; Eosinophils # 0.1 K/mcL (0.0-0.6); Eosinophils % 0.8 %; Hematocrit 42.1 % (37.5-50.1); Hemoglobin 13.5 g/dL (12.9-16.9); Immature Granulocytes % 0.2 % (0-4); Lymphocytes # 1.4 K/mcL (0.6-4.6); Lymphocytes % 21.9 %; Mean Corpuscular HGB Conc 32.1 g/dL (31.6-35.5); Mean Corpuscular Hemoglobin 30.2 pg (28.0-33.3); Mean Corpuscular Volume 94.2 fL (83.0-100.0); Mean Platelet Volume 11.8 fL (9.4-12.4); Monocytes # 0.7 K/mcL (0.0-1.3); Monocytes % 9.9 %; Neutrophils # 4.4 K/mcL (1.6-8.9); Nucleated Red Blood Cells 0.5 /100 WBC (0); Platelet Count 142 K/mcL (140-400); Red Blood Count 4.47 M/mcL (4.19-5.50); Red Cell Distribution Width 18.5 % (11.5-14.5); Segmented Neutrophils % 66.4 %
[2016-09-02 05:03] LABS: INR 2.2
[2016-09-02] MEDS: *HR* OxyCODONE/APAP 5/325 TABLET PO PRN (05:09)
[2016-09-02 05:24] LABS: Calcium 8.7 mg/dL (8.6-10.8); Potassium 4.6 mEq/L (3.5-4.5)
[2016-09-02] MEDS: Furosemide 40 MG/4 ML VIAL IVP SCH ×2 (08:17→17:08)
--- NOTE | 2016-09-02 12:17 | Cardiology Progress Note ---
Date of Encounter: 09/02/16 Time of Encounter: 12:15 Assessment and Plan (1) Elevated troponin Current Visit: Yes Status: Acute Mild troponin elevation at 0.07, 0.09. Likely demand ischemia in the setting of CHF and JULIO. Baseline creatinine 1.2-1.3 seen at [facility] in 2013. TTE revealed EF 25%, severe global dysfunction, RV is normal size with mild hypokenesis, bioprosthetic aortic valve well seated, MG 10 mmHg, previous mitral valve repair by history. Oscillating echodensity noted on postrior mitral valve annulus. Endocarditis unlikely with clinical presentation and work-up. Likely remnant of mitral valve repair.Blood cultures recommended and ordered. Telemetry review shows NSVT up to 5 beats, occasional couplets. Increase beta- nash. Reports from [facility] received. EF 25% in 2002 during time of bypass, AVR, and MVR. No studies following that hospital stay. Recommend f/u with cardiology to consider ICD placement in the future. No indication for further cardiac testing during hospital stay. Await blood culture results. I will change metoprolol tartrate to succinate. No eulogio-inhibitor d/t JULIO. Asa and statin therapy. (2) Chronic atrial fibrillation Current Visit: No Status: Inactive Likely chronic afib. Rate controlled. On coumadin for penitentiary anticoagulation. (3) CHF (congestive heart failure) Current Visit: Yes Status: Acute EF 25%. CXR -Moderate right pleural effusion and bilateral airspace changes. BNP 2891. Continue IV lasix. Strict I&O and daily weights. Negative 151 for 24 hours, ? is accurate. Symptoms improved with diuretic. Kidney function improved. CHF education. No eulogio-inhibitor d/t JULIO. Qualifiers: Congestive heart failure type: combined Congestive heart failure chronicity : acute Qualified Code(s): I50.41 - Acute combined systolic (congestive) and diastolic (congestive) heart failure (4) CAD (coronary artery disease) Current Visit: No Status: Chronic H/o of CAD s/p CABGx 5 in 2002, s/p bioprosthetic aortic valve replacement and mitral valve repair. Add asa. Continue statin and bb. Denies chest pain. Qualifiers: Coronary Disease-Associated Artery/Lesion type: [place] artery [place] vs. transplanted heart: [place] heart Associated angina: without angina Qualified Code(s): I25.10 - Atherosclerotic heart disease of [place] coronary artery without angina pectoris Discussion w patient/family: The assessment and plan as outlined above was discussed with the patient and/or family members who expressed understanding and agreement. All questions were answered. Thank you for involving us in the care of your patient. Please call with any questions. Subjective Principal diagnosis: CHF Interval history: Mr. Jane reports he is feeling better. Denies chest pain. Pt is a poor historian. Records revieved and reviewed from [facility] Objective Vital Signs, Last 4 Hours Temp Resp BP Pulse Ox 09/02/16 11:06 97.5 F L 16 124/72 90 L General: Conversant, No Apparent Distress, Other (Frail elderly male. ) HEENT: Atraumatic, Normocephaly, Mucus Membranes Moist Neck: No JVD, Normal carotid pulses Cardiac: Reg Rate and Rhythm, Normal S1 and S2, No Murmur Lungs: Normal Breath Sounds, No Wheeze, Rales, Rhonchi, Other (Appears to have mild SOB at rest.) Neuro: Alert and responsive, No focal deficits noted Abdomen: Soft, Non-Tender Skin: No rashes noted on visualized skin Musculoskeletal: No Chest Wall Tenderness Extremities: No Clubbing, No Cyanosis, No Edema, Normal Pulses Results 09/02/16 04:29 09/02/16 04:29 Lab Results 09/02/16 09/02/16 09/02/16 04:29 04:29 04:29 WBC 6.6 Hgb 13.5 Hct 42.1 Plt Count 142 INR 2.2 Sodium 139 Potassium 4.6 H Chloride 106 Carbon Dioxide 22 BUN 41 H Creatinine 1.71 H Glucose 115 H Calcium 8.7 - Imaging and Cardiology Echo: report reviewed Cardiac cath: report reviewed - EKG Interpretation EKG results cardiology: personally reviewed (atrial fibrillation. No ST changes. ), other (Telemetry review shows avg HR at 88bpm, atrial fibrillation, One 5 beat run of NSVt , occasional flavio and couplet noted.) Consult Discharge Plan - Plan Referrals: NO,PCP [Primary Care Provider] -
[2016-09-02] MEDS: Aspirin 81 MG TAB.CHEW PO SCH (13:50)
--- NOTE | 2016-09-02 15:05 | Internal Med Progress Note ---
Date of Encounter: 09/02/16 Time of Encounter: 11:30 - Assessment and plan (1) Abnormal echocardiogram Current Visit: Yes Status: Acute Assessment and plan: In review of charts from outlying hospitals, ejection fraction 25% is not new however the vegetation appears to be new. Per cardiology, will rule out endocarditis and await blood cultures prior to disposition. On examination, patient is euvolemic and denies pain or shortness of breath. If preliminary blood cultures are back tomorrow, likely discharge. Echocardiogram impressions: LVEF 25%. Severe global and segmental LV systolic dysfunction. Indeterminant diastolic function. Atypical septal motion consistent with postoperative status. Right ventricle appears near normal in size and mild hypokinesis. Moderate biatrial enlargement. Bioprosthetic aortic valve appears well seated. Trace valvular aortic regurgitation. Mean aortic valve gradient is 10 mmHg, which could be underestimated due to LV systolic dysfunction. Visually, the leaflets do not appear calcified and demonstrated adequate mobility. Previous mitral valve repair per reports. Mitral valve leaflets appear thickened. Filamentous oscillating echodensity adherent to the posterior and the annulus possibly represents a vegetation. Clinical correlation suggested. Mild-moderate pulmonary hypertension. Estimated RVSP is 43-48 mmHg, including an estimated RA pressure is 15-20 mmHg. No previous echocardiograms for comparison. (2) CKD (chronic kidney disease) stage 3, GFR 30-59 ml/min Current Visit: Yes Status: Chronic Assessment and plan: [facility], patient has chronic kidney disease stage III, currently consistent with his baseline. We will continue to trend. (3) A-fib Current Visit: Yes Status: Chronic Assessment and plan: Patient is on Coumadin. INR therapeutic at 2.2. Heart rate is well controlled Qualifiers: Atrial fibrillation type: chronic Qualified Code(s): I48.2 - Chronic atrial fibrillation (4) CHF (congestive heart failure) Current Visit: Yes Status: Chronic Assessment and plan: Echo shows LVEF 25% with moderate diastolic dysfunction. Continue Lasix. Patient is on beta nash. Per cardiology, blood cultures are negative, no further inpatient workup required inpatient would be cleared for outpatient follow-up at that time. Euvolemic on examination. Patient denies pain or shortness of breath. Qualifiers: Congestive heart failure type: combined Congestive heart failure chronicity : acute Qualified Code(s): I50.41 - Acute combined systolic (congestive) and diastolic (congestive) heart failure (5) Elevated troponin Current Visit: Yes Status: Acute Assessment and plan: Mild and adynamic. Suspect demand ischemia in the setting of CHF and CK D. Cardiology on board. Low suspicion for acute coronary syndrome. Patient denies pain or shortness of breath. (6) Near syncope Current Visit: Yes Status: Acute Assessment and plan: Unclear etiology, suspect multifocal. 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 Carotid duplex unremarkable. Head CT negative. Chest x-ray revealing moderate right-sided pleural effusion versus multifocal pneumonia versus CHF. Clinical examination consistent with CHF rather than multifocal pneumonia. Patient denies pain or shortness of breath. No need for supplemental oxygenation. No indication for thoracentesis at this time. Possible discharge tomorrow if blood cultures are negative. ITS Impressions Chest X-Ray 08/31/16 21:22 IMPRESSION: Moderate-sized right pleural effusion. Bilateral lower lobe airspace disease greater on the right. These changes may represent multifocal pneumonia versus CHF. D/ : / 08/31/2016 21:55:58 Galdino Richards MD / Elida Simpson Interpreting Provider: Galdino Richards MD Head CT 08/31/16 21:41 IMPRESSION: No acute intracranial abnormality. If acute cerebral infarct is clinical concern, an MRI is a more sensitive study. D/ / Rebecca Barnett Cha, MD / Rebecca Barnett Cha, MD Interpreting Provider: Rebecca Barnett Cha, MD Retroperitoneum Ultrasound 09/01/16 13:00 IMPRESSION: Unremarkable ultrasound of the kidneys and urinary bladder. Moderately enlarged prostate. Right pleural effusion incidentally noted. D/ / 09/01/2016 15:24:03 Tarik Bautista MD / meghan Interpreting Provider: Tarik Bautista MD (7) CAD (coronary artery disease) Current Visit: No Status: Chronic Assessment and plan: Patient denies chest pain. On warfarin, beta blockers, and statin. Will follow cardiology further recommendation. Qualifiers: Coronary Disease-Associated Artery/Lesion type: [place] artery [place] vs. transplanted heart: [place] heart Associated angina: without angina Qualified Code(s): I25.10 - Atherosclerotic heart disease of [place] coronary artery without angina pectoris - Subjective Interval history: Patient seen and examined. On examination, patient sitting upright on the side of his bed. Patient stating he wants to go home. Patient denies pain or shortness of breath. - Constitutional Vitals: Temp Pulse Resp BP Pulse Ox 97.5 F L 95 16 124/72 90 L 09/02/16 11:06 09/02/16 08:15 09/02/16 11:06 09/02/16 11:06 09/02/16 11:06 General appearance: Present: cachectic, A&O X 3, pleasant, no acute distress, answers questions appropriately - Head Head exam: Present: atraumatic, normocephalic - Eye Eye exam: Present: PERRL, conjuntiva pink, sclera anicteric Pupils: Present: PERRL - Neck Neck exam general surgery: Present: supple, trachea midline. Absent: lymphadenopathy - Respiratory Respiratory exam: Present: decreased breath sounds. Absent: accessory muscle use, rales, respiratory distress, rhonchi, wheezes - Cardiovascular Cardiovascular exam: Present: RRR, +S1, +S2. Absent: diastolic murmur, gallop, rubs, systolic murmur - GI/Abdominal GI/Abdominal exam: Present: normal bowel sounds, soft, no peritoneal signs. Absent: distended, tenderness - Extremities Exam Extremities exam: Present: warm, radial pulses palpable and symetrical. Absent : calf tenderness, cyanotic, pedal edema - Neurological Exam Neurological exam: Present: alert, CN II-XII intact, normal gait, oriented X3, no focal deficits, strengths equal and symetr throughout. Absent: pronater drift, facial droop, speech deficit - Skin Skin exam: Present: dry, intact, pallor, warm Internal Medicine: Result - Labs CBC & Chem 7: 09/02/16 04:29 09/02/16 04:29 Labs: Short CBC 09/02/16 Range/Units 04:29 WBC 6.6 (4.3-11.1) K/mcL Hgb 13.5 (12.9-16.9) g/dL Hct 42.1 (37.5-50.1) % Plt Count 142 (140-400) K/mcL Neutrophils # 4.4 (1.6-8.9) K/mcL BMP 09/02/16 04:29 Sodium 139 Potassium 4.6 H Chloride 106 Carbon Dioxide 22 BUN 41 H Creatinine 1.71 H Glucose 115 H Calcium 8.7 - ABG Interpretation ABG results: PT/INR, D-dimer PT 24.0 Seconds (9.4-12.1) H 09/02/16 04:29 - Impressions Impressions Retroperitoneum Ultrasound 09/01/16 13:00 IMPRESSION: Unremarkable ultrasound of the kidneys and urinary bladder. Moderately enlarged prostate. Right pleural effusion incidentally noted. D/ / 09/01/2016 15:24:03 Tarik Bautista MD / meghan Interpreting Provider: Tarik Bautista MD Consult Discharge Plan - Plan Referrals: NO,PCP [Primary Care Provider] -
--- NOTE | 2016-09-02 15:23 | Carotid Imaging Report ---
Carotid Duplex Patient Name:Tarik Jane Order Number:[id number] Procedure Date:09/01/2016 Date:8Age:86 yrs Gender:Male Rt.BP:129 / 71 mmHgHeart Rate: Location:[facility] Room #: 3B31 Academic Coordinator:An Jacob Referring MD:Maylin Flores MD rose grower:None Reading MD:Phong Kolb MD Primary Indications:Syncope and collapse Risk Factors Yes/No Hypertension Yes Smoker Previous Yes Hx of CVA Yes Impressions: Findings: Right proximal ICA has a moderate, 40-59% stenosis. Recommendations: Risk Factor Modification, Medical Therapy, and Follow up exam 12 months. Preliminary noted in pt EMR. Test completed on 09/01/2016 at 8:12:00 pm. Findings Carotid Duplex: Right: The right proximal common carotid artery has a PSV of 70 cm/s and a EDV of 13 cm/s. The right mid common carotid artery has a PSV of 51 cm/s and a EDV of 15 cm/s. The right distal common carotid artery has a PSV of 44 cm/s and a EDV of 9 cm/s. There is nonstenotic plaque in the right bifurcation with a PSV of 73 cm/s and a EDV of 14 cm/s. There is irregular, heterogeneous calcified plaque. There is 40-59% stenosis in the right proximal internal carotid artery with a PSV of 158 cm/s and a EDV of 26 cm/s. The right mid internal carotid artery has a PSV of 78 cm/s and a EDV of 12 cm/s. The right distal internal carotid artery has a PSV of 77 cm/s and a EDV of 16 cm/s. The right eca has a PSV of 111 cm/s and a EDV of 14 cm/s. The right vertebral artery has a PSV of 75 cm/s and a EDV of 17 cm/s. There is antegrade spectral Doppler flow patterns. Left: There is nonstenotic plaque in the left proximal common carotid artery with a PSV of 65 cm/s and a EDV of 12 cm/s. There is irregular heterogeneous plaque. The left mid common carotid artery has a PSV of 62 cm/s and a EDV of 12 cm/s. There is nonstenotic plaque in the left distal common carotid artery with a PSV of 47 cm/s and a EDV of 11 cm/s. There is highly irregular heterogeneous plaque. There is nonstenotic plaque in the left bifurcation with a PSV of 34 cm/s and a EDV of 11 cm/s. The left proximal internal carotid artery has a PSV of 45 cm/s and a EDV of 9 cm/s. The left mid internal carotid artery has a PSV of 61 cm/s and a EDV of 19 cm/s. The left distal internal carotid artery has a PSV of 89 cm/s and a EDV of 16 cm/s. The left eca has a PSV of 56 cm/s and a EDV of 7 cm/s. The left vertebral artery has a PSV of 54 cm/s and a EDV of 11 cm/s. There is antegrade spectral Doppler flow patterns. Prior Study: No prior study available for comparison. Carotid Results Right PSV EDV Assessment Proximal CCA 70 13 Non Stenotic Plaque Mid CCA 51 15 Distal CCA 44 9 Bifurcation 73 14 Non Stenotic Plaque Proximal ICA 158 26 40-59% stenosis Mid ICA 78 12 Distal ICA 77 16 ECA 111 14 Vertebral Artery 75 17 Antegrade Flow Left PSV EDV Assessment Proximal CCA 65 12 Non Stenotic Plaque Mid CCA 62 12 Distal CCA 47 11 Non Stenotic Plaque Bifurcation 34 11 Non Stenotic Plaque Proximal ICA 45 9 Mid ICA 61 19 Distal ICA 89 16 ECA 56 7 Vertebral Artery 54 11 Antegrade Flow Ratio's Right ICA/CCA Ratio: 3.10 ICA/CCA Values: 158/51 Left ICA/CCA Ratio: 1.44 ICA/CCA Values: 89/62 Updated by Phong Kolb MD on 09/02/2016 3:18:55 PM electronically signed on 09/02/2016 3:19:22 PM with status of Final
[2016-09-02] MEDS ORDERED: *HR* Warfarin 4 MG TABLET PO ONE (18:00)
[2016-09-03] MEDS: *HR* OxyCODONE/APAP 5/325 TABLET PO PRN (03:55)
[2016-09-03 04:53] LABS: INR 2.2; Prothrombin Time 23.8 Seconds (9.4-12.1)
[2016-09-03 05:08] LABS: Calcium 8.8 mg/dL (8.6-10.8); Potassium 4.5 mEq/L (3.5-4.5)
[2016-09-03] MEDS: Aspirin 81 MG TAB.CHEW PO SCH (08:18)
[2016-09-03] MEDS: Furosemide 40 MG/4 ML VIAL IVP SCH (08:19)
[2016-09-03] MEDS ORDERED: Metoprolol XL (24 HR) Succ 25 MG TAB.ER.24H PO SCH (09:00)
--- NOTE | 2016-09-03 11:04 | Discharge Summary ---
Date of Encounter: 09/03/16 Time of Encounter: 10:30 - Discharge Diagnosis (1) Abnormal echocardiogram Priority: Primary Status: Acute Comments: In review of charts from outlying hospitals, ejection fraction 25% is not new however the vegetation appears to be new. Per cardiology, endocarditis was ruled out with negative blood cultures, lack of leukocytosis, fever. On examination, patient is euvolemic and denies pain or shortness of breath. Follow up closely outpatient. Echocardiogram impressions: LVEF 25%. Severe global and segmental LV systolic dysfunction. Indeterminant diastolic function. Atypical septal motion consistent with postoperative status. Right ventricle appears near normal in size and mild hypokinesis. Moderate biatrial enlargement. Bioprosthetic aortic valve appears well seated. Trace valvular aortic regurgitation. Mean aortic valve gradient is 10 mmHg, which could be underestimated due to LV systolic dysfunction. Visually, the leaflets do not appear calcified and demonstrated adequate mobility. Previous mitral valve repair per reports. Mitral valve leaflets appear thickened. Filamentous oscillating echodensity adherent to the posterior and the annulus possibly represents a vegetation. Clinical correlation suggested. Mild-moderate pulmonary hypertension. Estimated RVSP is 43-48 mmHg, including an estimated RA pressure is 15-20 mmHg. No previous echocardiograms for comparison. (2) CKD (chronic kidney disease) stage 3, GFR 30-59 ml/min Priority: Secondary Status: Chronic Comments: [facility] patient has chronic kidney disease stage III, currently consistent with his baseline. Follow-up outpatient (3) A-fib Priority: Secondary Status: Chronic Comments: Patient is on Coumadin. INR therapeutic at 2.2. Heart rate is well controlled. Follow-up outpatient. Qualifiers: Atrial fibrillation type: chronic Qualified Code(s): I48.2 - Chronic atrial fibrillation (4) CHF (congestive heart failure) Priority: Secondary Status: Chronic Comments: Echo shows LVEF 25% with moderate diastolic dysfunction. Continue Lasix upon discharge per cardiology recs. Patient is on beta nash. Per cardiology, blood cultures are negative and no further inpatient workup required inpatient. Euvolemic on examination. Patient denied pain or shortness of breath throughout this admission Qualifiers: Congestive heart failure type: combined Congestive heart failure chronicity : acute Qualified Code(s): I50.41 - Acute combined systolic (congestive) and diastolic (congestive) heart failure (5) Elevated troponin Priority: Primary Status: Acute Comments: Mild and adynamic. Suspect demand ischemia in the setting of CHF and CKD. Cardiology on board and have cleared him for outpatient follow-up. Low suspicion for acute coronary syndrome. Patient denies pain or shortness of breath. (6) Near syncope Priority: Primary Status: Acute Comments: Unclear etiology, suspect multifactorial. 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 Carotid duplex unremarkable. Head CT negative. Chest x-ray revealing moderate right-sided pleural effusion versus multifocal pneumonia versus CHF. Clinical examination consistent with CHF rather than multifocal pneumonia. Patient denied pain or shortness of breath throughout this admission and did not need supplemental oxygenation. No indication for thoracentesis at this time. Recommend close outpatient follow-up ITS Impressions Chest X-Ray 08/31/16 21:22 IMPRESSION: Moderate-sized right pleural effusion. Bilateral lower lobe airspace disease greater on the right. These changes may represent multifocal pneumonia versus CHF. D/ : / 08/31/2016 21:55:58 Galdino Richards MD / Elida Simpson Interpreting Provider: Galdino Richards MD Head CT 08/31/16 21:41 IMPRESSION: No acute intracranial abnormality. If acute cerebral infarct is clinical concern, an MRI is a more sensitive study. D/ / Rebecca Barnett Cha, MD / Rebecca Barnett Cha, MD Interpreting Provider: Rebecca Barnett Cha, MD Retroperitoneum Ultrasound 09/01/16 13:00 IMPRESSION: Unremarkable ultrasound of the kidneys and urinary bladder. Moderately enlarged prostate. Right pleural effusion incidentally noted. D/ / 09/01/2016 15:24:03 Tarik Bautista MD / meghan Interpreting Provider: Tarik Bautista MD (7) CAD (coronary artery disease) Priority: Secondary Status: Chronic Comments: Patient denied chest pain throughout this admission. On warfarin, beta blockers , and statin. Aspirin added. As his renal functioning was found to be consistent with his norm, he was started on low-dose lisinopril. Qualifiers: Coronary Disease-Associated Artery/Lesion type: [place] artery [place] vs. transplanted heart: [place] heart Associated angina: without angina Qualified Code(s): I25.10 - Atherosclerotic heart disease of [place] coronary artery without angina pectoris - Discharge Medications Prescriptions: Aspirin 81 mg PO DAILY #30 tab.chew Furosemide [Lasix] 40 mg PO DAILY #30 tablet Lisinopril [Zestril] 2.5 mg PO DAILY #15 tablet Metoprolol XL (24 HR) Succ [Toprol Xl] 25 mg PO DAILY #30 tab.er.24h Home Medications: Potassium Chloride 10 meq PO DAILY 08/31/16 [History] Simvastatin [Zocor] 40 mg PO DAILY 08/31/16 [History] Warfarin [Coumadin] 4 mg PO [id number] 08/31/16 [History] Oxycodone HCl/Acetaminophen [Percocet 5-325 mg Tablet] 1 tab PO Q6HR PRN [History] Terazosin HCl 10 mg PO DAILY 09/01/16 [History] Warfarin [Coumadin] 4 mg PO LYNNE 09/01/16 [History] Aspirin 81 mg PO DAILY #30 tab.chew 09/03/16 [Rx] Furosemide [Lasix] 40 mg PO DAILY #30 tablet 09/03/16 [Rx] Lisinopril [Zestril] 2.5 mg PO DAILY #15 tablet 09/03/16 [Rx] Metoprolol XL (24 HR) Succ [Toprol Xl] 25 mg PO DAILY #30 tab.er.24h 09/03/16 [ Rx] Allergies/Adverse Reactions: Allergies No Known Allergies Allergy (Verified 08/31/16 21:16) Date of admission: 09/02/16 15:12 Primary care physician: PCP NO Consults: 09/01/16 02:13 Consult to Cardiology [CONS] Routine Comment: Consulting Provider: [facility] Reason for Consult: elevated troponin, CXR suggest CHF. Call Completed: No Discharging clinician: Argelia Cisneros Anticipated date of discharge: 09/03/16 - Patient Status Disposition: Home, Self-Care Condition: Fair Functional capacity at discharge: independent ambulation Overall status at discharge: patient is back to baseline - Discharge Instructions Follow Up With: [facility] [Provider Group] Additional Instructions: Follow-up with your primary care provider and your poker machine attendant within 1-2 weeks. Follow-up with [facility] cardiology if unable to obtain poker machine attendant closer to home - Diet and Activity Activity: increase activity as tolerated Diet: low fat, low cholesterol, low salt diet, other (fluid restriction 1500ml/ day) Hospital course: Mr. Jane is a 86 year old male with past medical history of CAD status post CABG 5, CKD 3, CVA, hypertension, atrial fibrillation on Coumadin, mitral valve repair, combined heart failure. Patient presented to the emergency department chief complaint shortness of dizziness and lightheadedness after he was splitting wood on the day prior to presentation. He states that this lasted less than one hour and has not recurred since that time. He went to bed and woke up in the morning and his symptoms had completely resolved. He did not fall, no syncope. Patient denied chest pain or neurological deficits. Patient stating he had a CVA several years ago and he felt dizzy at that time as well. He was in town visiting his family who made him come to the emergency department. Workup in the emergency department revealing moderate sized pleural effusion with chest x-ray consistent with CHF. Head CT negative. Patient was admitted to the hospitalist service for further evaluation and management. Mildly elevated troponin noted and cardiology was brought on board. He has never been to this facility prior to this visit so prior records were obtained from [place]. His echocardiogram revealing ejection fraction of 25% with moderate diastolic dysfunction with possible vegetation and mild to moderate pulmonary hypertension. His echocardiogram from outlying hospitals were used in comparison and the only new finding was the vegetation. Blood cultures were negative. No leukocytosis. No fever or other signs of acute infectious process. Endocarditis unlikely. Patient's troponin remained mild and adynamic with strong suspicion for demand ischemia in the setting of heart failure and chronic kidney disease. Low suspicion for acute coronary syndrome. Patient was diuresed throughout this admission with IV Lasix. Patient was asymptomatic throughout this admission and tolerated a regular diet. Carotid duplex unremarkable. Patient tolerated room air throughout this admission. There is no indication for thoracentesis at this time. Cardiology increased the patient's Lasix dosage from 20 mg daily to 40 mg daily upon discharge. He is on statin therapy and aspirin was added to his regimen. He was also noted to be on metoprolol tartrate once a day so this was changed to metoprolol succinate. Also, as the patient's renal functioning was noted to be consistent with his norm, he was started on low-dose lisinopril. Coumadin was therapeutic throughout this admission as well. He was ambulatory about his room without gait abnormality. He was discharged home in stable condition with close outpatient follow-up recommended. Of note, patient stating he wanted to follow up with his poker machine attendant in [place] however he did not know the poker machine attendant name. It does not appear as if he has followed up after his CABG 5. We made an appointment for him with [facility] cardiology in the event he does not obtain another poker machine attendant. ITS Impressions Chest X-Ray 08/31/16 21:22 IMPRESSION: Moderate-sized right pleural effusion. Bilateral lower lobe airspace disease greater on the right. These changes may represent multifocal pneumonia versus CHF. D/ : / 08/31/2016 21:55:58 Galdino Richards MD / Elida Simpson Interpreting Provider: Galdino Richards MD Head CT 08/31/16 21:41 IMPRESSION: No acute intracranial abnormality. If acute cerebral infarct is clinical concern, an MRI is a more sensitive study. D/ / Rebecca Barnett Cha, MD / Rebecca Barnett Cha, MD Interpreting Provider: Rebecca Barnett Cha, MD Retroperitoneum Ultrasound 09/01/16 13:00 IMPRESSION: Unremarkable ultrasound of the kidneys and urinary bladder. Moderately enlarged prostate. Right pleural effusion incidentally noted. D/ / 09/01/2016 15:24:03 Tarik Bautista MD / meghan Interpreting Provider: Tarik Bautista MD 09/01/16 20:46 - Vascular Preliminary by An Gabriel Acct Num: [id number] : 1930 Patient Age: 86 Carotid Bilateral; Right and Left side noted non-stenotic plaque throughout Right proximal ICA appears 40-59% stenosis Echocardiogram impressions: LVEF 25%. Severe global and segmental LV systolic dysfunction. Indeterminant diastolic function. Atypical septal motion consistent with postoperative status. Right ventricle appears near normal in size and mild hypokinesis. Moderate biatrial enlargement. Bioprosthetic aortic valve appears well seated. Trace valvular aortic regurgitation. Mean aortic valve gradient is 10 mmHg, which could be underestimated due to LV systolic dysfunction. Visually, the leaflets do not appear calcified and demonstrated adequate mobility. Previous mitral valve repair per reports. Mitral valve leaflets appear thickened. Filamentous oscillating echodensity adherent to the posterior and the annulus possibly represents a vegetation. Clinical correlation suggested. Mild-moderate pulmonary hypertension. Estimated RVSP is 43-48 mmHg, including an estimated RA pressure is 15-20 mmHg. No previous echocardiograms for comparison. - Time Spent with Patient Total time spent providing and/or coordinating discharge services: - Constitutional Vitals: Temp Pulse Resp BP Pulse Ox 97.4 F L 85 17 131/70 95 09/03/16 06:48 09/03/16 06:48 09/03/16 06:48 09/03/16 06:48 09/03/16 08:00 General appearance: Present: cachectic, A&O X 3, pleasant, no acute distress, answers questions appropriately - Head Head exam: Present: atraumatic, normocephalic - Eye Eye exam: Present: PERRL, conjuntiva pink, sclera anicteric Pupils: Present: PERRL - Neck Neck exam general surgery: Present: supple, trachea midline. Absent: lymphadenopathy - Respiratory Respiratory exam: Present: CTAB. Absent: accessory muscle use, rales, respiratory distress, rhonchi, wheezes - Cardiovascular Cardiovascular exam: Present: irregular rhythm, RRR, +S1, +S2. Absent: diastolic murmur, gallop, rubs, systolic murmur - GI/Abdominal GI/Abdominal exam: Present: normal bowel sounds, soft, no peritoneal signs. Absent: distended, tenderness - Extremities Exam Extremities exam: Present: warm, radial pulses palpable and symetrical. Absent : calf tenderness, cyanotic, pedal edema - Neurological Exam Neurological exam: Present: alert, CN II-XII intact, normal gait, oriented X3, no focal deficits, strengths equal and symetr throughout. Absent: pronater drift, facial droop, speech deficit - Skin Skin exam: Present: dry, intact, normal color, warm
--- NOTE | 2016-09-03 11:17 | Cardiology Progress Note ---
Date of Encounter: 09/03/16 Time of Encounter: 10:30 Assessment and Plan (1) Elevated troponin Current Visit: Yes Status: Acute Mild troponin elevation at 0.07, 0.09. Demand ischemia in the setting of CHF and JULIO. TTE revealed EF 25%, severe global dysfunction, RV is normal size with mild hypokenesis, bioprosthetic aortic valve well seated, MG 10 mmHg, previous mitral valve repair by history. Oscillating echodensity noted on posterior mitral valve annulus. Endocarditis unlikely with clinical presentation and work-up. 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 Blood cultures preliminary negative x 2. Likely not endocarditis. He is afebrile. WBC negative. No wounds. Telemetry review shows rate controlled atrial fibrillation.No NSVT. Reports from [facility]. EF 25% in 2002 during time of bypass, AVR, and MVR. No studies following that hospital stay. Recommend f/u with cardiology to consider ICD placement in the future. No indication for further cardiac testing during hospital stay. Continue asa, statin, and bb. Pt wants to follow with PCP and be referred to plug saw operator in [facility] where he lives. We will schedule f/u with us in one week in-case he is unable to find another plug saw operator to see in the next 1-2 weeks. Recommend repeat echo in out pt setting to re-evaluate Mitral valve annulus. Likely remnant of MV repair. (2) Chronic atrial fibrillation Current Visit: No Status: Inactive Likely chronic afib. Rate controlled. On coumadin for intermission coordinator anticoagulation followed by PCP. (3) CHF (congestive heart failure) Current Visit: Yes Status: Chronic EF 25%. CXR -Moderate right pleural effusion and bilateral airspace changes. Unchanged from 2003. BNP 2891. Symptoms improved with lasix. Convert to oral. mild increase in creatinine today. Recommend maintenance dose of lasix. Low sodium diet and daily weights. CHF education reviewed. No eulogio-inhibitor or aldactone d/t JULIO. 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 Add asa. Continue statin and bb. Denies chest pain. Qualifiers: Qualified Code(s): I25.10 - Atherosclerotic heart disease of [place] coronary artery without angina pectoris Discussion w patient/family: The assessment and plan as outlined above was discussed with the patient and/or family members who expressed understanding and agreement. All questions were answered. Thank you for involving us in the care of your patient. Please call with any questions. Subjective Principal diagnosis: CHF Interval history: Mr. Jane reports he is feeling better. Denies chest pain. SOB resolved. Objective Vital Signs, Last 4 Hours Pulse Ox 09/03/16 08:00 95 General: Conversant, No Apparent Distress, Other (Mildly confused.) HEENT: Atraumatic, Normocephaly, Mucus Membranes Moist Neck: No JVD, Normal carotid pulses Cardiac: Reg Rate and Rhythm, Normal S1 and S2, No Murmur Lungs: Normal Breath Sounds, No Wheeze, Rales, Rhonchi Neuro: Alert and responsive, No focal deficits noted Abdomen: Soft, Non-Tender Skin: No rashes noted on visualized skin Musculoskeletal: No Chest Wall Tenderness Extremities: No Clubbing, No Cyanosis, No Edema, Normal Pulses Results 09/02/16 04:29 09/03/16 04:38 Lab Results 09/03/16 09/03/16 04:38 04:38 INR 2.2 Sodium 138 Potassium 4.5 Chloride 105 Carbon Dioxide 23 BUN 46 H Creatinine 1.81 H Glucose 109 H Calcium 8.8 - EKG Interpretation EKG results cardiology: other (24 hour telemetry review shows rate controlled afib. Occasional PVC.) Consult Discharge Plan - Plan Referrals: NO,PCP [Primary Care Provider] - Prescriptions: Aspirin 81 mg PO DAILY #30 tab.chew Furosemide [Lasix] 40 mg PO DAILY #30 tablet Metoprolol XL (24 HR) Succ [Toprol Xl] 25 mg PO DAILY #30 tab.er.24h
[2016-09-03 11:20] VITALS: BP 116/68
== END 2016-09-03 12:35 | disposition home or self-care (01) | DRG 291 ==
LOC: EMEROO 21:15 → 3BNU 21:15 → SUATTDRO 09-01 00:24 → 3BNU 09-01 01:00
PROVIDERS: ADMIT Internal Medicine Sleep Medicine; ATTEND Internal Medicine